=== PATIENT | male | born 1950 | race African-American/Black ===

== ENCOUNTER 2019-09-13 11:36 | Inpatient (IN) | payer OTHER ==
[~2019-09-13] VITALS: Ht 172.7 cm; Wt 72.0 kg
[2019-09-13] MEDS ORDERED: LOSARTAN POTASS50 MG (11:44)
[2019-09-13] MEDS ORDERED: HYDRALAZINE HC100 MG (11:45)
[2019-09-15] MEDS ORDERED: CLOPIDOGREL BIS75 MG PO (08:41)
[2019-09-15] MEDS ORDERED: HALOPERIDOL2 MG PO (08:41)
== END 2019-09-15 17:27 | disposition home or self-care (01) | DRG 64 ==
LOC: ER 11:36 → MEDJ 21:03 → MEDI 09-14 02:32
PROVIDERS: ADMIT Internal Medicine
PROC: B030ZZZ Magnetic Resonance Imaging (MRI) of Brain (ICD-10-PCS; principal; 2019-09-13)
PROC: BW28YZZ Computerized Tomography (CT Scan) of Head using Other Contrast (ICD-10-PCS; 2019-09-13)
PROC: B345ZZZ Ultrasonography of Bilateral Common Carotid Arteries (ICD-10-PCS; 2019-09-13)
PROC: B246ZZZ Ultrasonography of Right and Left Heart (ICD-10-PCS; 2019-09-13)
PROC: 4A12X4Z Monitoring of Cardiac Electrical Activity, External Approach (ICD-10-PCS; 2019-09-13)
DX: I61.0 Nontraumatic intracerebral hemorrhage in hemisphere, subcortical (principal); I33.0 Acute and subacute infective endocarditis; I69.354 Hemiplegia and hemiparesis following cerebral infarction affecting left non-dominant side; I67.82 Cerebral ischemia; I69.320 Aphasia following cerebral infarction; I10 Essential (primary) hypertension
CPT/HCPCS: 70544

== ENCOUNTER 2019-10-13 17:46 | Emergency (ER) | payer OTHER ==
[~2019-10-13] VITALS: Ht 172.7 cm; Wt 74.8 kg
[~2019-10-13 17:46] MED LIST: CLOPIDOGREL BIS75 MG PO; HALOPERIDOL2 MG PO; HYDRALAZINE HC100 MG; LOSARTAN POTASS50 MG
== END 2019-10-13 22:15 | disposition home or self-care (01) ==
LOC: ER 17:46
DX: R20.0 Anesthesia of skin (principal); Z86.73 Personal history of transient ischemic attack (TIA), and cerebral infarction without residual deficits